=== PATIENT | male | born 1985 | race Caucasian/White ===

== ENCOUNTER 2018-05-14 07:34 | Emergency (ER) | payer OTHER, BC ==
[~2018-05-14 07:34] MED LIST: BUPROPION XL150 MG PO; CELEXA20 MG PO; CELEXA40 MG PO; FLEXERIL10 MG PO; KEFLEX500 MG PO; LORTAB 5-325 M1 EACH PO; MOTRIN600 MG PO; NAPROSYN500 MG PO; ULTRAM50 MG PO
[2018-05-14 08:06] LABS: BASOPHIL (%) 0.7 % (0-1); BASOPHIL COUNT 0.1 K/uL (0-0.1); EOSINOPHIL (%) 4.5 % (0-5); EOSINOPHIL COUNT 0.4 K/uL (0-0.3); HEMATOCRIT 46.9 % (38.0-50.0); HEMOGLOBIN 15.9 G/DL (12.5-16.6); IMMATURE GRANULOCYTE (%) 1.1 % (0.0-0.7); LYMPHOCYTE (%) 32.3 % (15-42); LYMPHOCYTE COUNT 3.2 K/uL (1.0-2.8); MCH 29.4 PG (29.0-34.0); MCHC 33.9 G/DL (30.0-36.0); MCV 86.7 FL (86-99); MONOCYTE (%) 6.7 % (3-12); MONOCYTE COUNT 0.7 K/uL (0-0.8); NEUTROPHIL (%) 54.7 % (45-76); NEUTROPHIL COUNT 5.4 K/uL (1.8-6.4); NRBC (%) 0.2 /100 WBC (0-0); PLATELET COUNT 197 K/uL (156-360); RBC DIS.WIDTH-CV 12.8 % (11.8-14.6); RED BLOOD COUNT 5.41 M/uL (4.00-5.50); WHITE BLOOD COUNT 9.8 K/uL (4.1-10.2)
[2018-05-14 08:10] LABS: AMYLASE 60 IU/L (1-118); CHLORIDE 107 mEq/L (99-109); POTASSIUM 4.1 mEq/L (3.7-5.4); SODIUM 143 mEq/L (136-147)
[2018-05-14 08:12] LABS: GLUCOSE 107 mg/dL (70-99)
[2018-05-14 08:15] LABS: SERUM ETHYL ALCOHOL < 10 mg/dL
[2018-05-14 08:16] LABS: CREATININE 1.3 mg/dL (0.6-1.3); GFR ESTIMATE (CALCULATED) > 59 mL/min/ (58.99-99999)
[2018-05-14 08:17] LABS: UREA NITROGEN (BUN) 23 mg/dL (9-23)
[2018-05-14 08:19] LABS: LIPASE 63 U/L (1.0-51.0)
[2018-05-14] MEDS ORDERED: PERCOCET 5/31 TABLET PO (09:54)
[2018-05-14] MEDS ORDERED: FLEXERIL10 MG PO (10:13)
[2018-05-14 11:34] LABS: APPEARANCE CLEAR ((CLEAR)); BILIRUBIN NEGATIVE; BLOOD MODERATE; COLOR STRAW ((YELLOW)); GLUCOSE (STRIP) NEGATIVE; KETONES NEGATIVE; LEUKOCYTES NEGATIVE; NITRITE NEGATIVE; PROTEIN (STRIP) 30; SPECIFIC GRAVITY 1.042 (1.000-1.030); UROBILINOGEN 0.2 MG/DL (0.2-1.0)
[2018-05-14 11:36] LABS: BACTERIA NONE SEEN /HPF; EPITHELIAL CELLS NONE SEEN /HPF; MUCUS TRACE /LPF; UCUL ADDED? NO; WHITE BLOOD CELLS 0-5 /HPF (0-5)
[2018-05-14 11:50] LABS: AMPHETAMINE NEGATIVE (500 ng/mL); BARBITURATES NEGATIVE (200 ng/mL); BENZODIAZEPINES NEGATIVE (150 ng/mL); BUPRENORPHINE NEGATIVE (10 ng/mL); COCAINE NEGATIVE (150 ng/mL); METHADONE NEGATIVE (200 ng/mL); METHAMPHETAMINE NEGATIVE (500 ng/mL); OPIATES (MORPHINE) NEGATIVE (100 ng/mL); OXYCODONE NEGATIVE (100 ng/mL); PHENCYCLIDINE NEGATIVE (25 ng/mL); PROPOXYPHENE NEGATIVE (300 ng/mL); THC CANNABINOIDS NEGATIVE (50 ng/mL); TRICYCLIC ANTIDEPRESSANTS NEGATIVE (300 ng/mL)
== END 2018-05-14 10:37 | disposition home or self-care (01) ==
LOC: TRA 07:34
PROVIDERS: Emergency Medicine
DX: S81.011A Laceration without foreign body, right knee, initial encounter (principal); S51.812A Laceration without foreign body of left forearm, initial encounter; S20.219A Contusion of unspecified front wall of thorax, initial encounter; R07.9 Chest pain, unspecified; V59.40XA Driver of pick-up truck or van injured in collision with unspecified motor vehicles in traffic accident, initial encounter; Y92.410 Unspecified street and highway as the place of occurrence of the external cause; F32.9 Major depressive disorder, single episode, unspecified
CPT/HCPCS: 70450; 71045; 71260; 72125; 72129; 72132; 73090; 73560; 74177; 80048; 81003; 82150; 83690; 85025; 86850; 86900; 86901; 99281; 99284; G0480; J3010